=== PATIENT | female | born 1985 | race Caucasian/White ===

== ENCOUNTER 2022-11-17 21:04 | Emergency (ER) | payer MEDICAID, SELFPAY ==
[2022-11-17] VITALS (22 sets, daily range): BP systolic 100–117; BP diastolic 55–78; PULSE 81–116; RESP 20; TEMP 37.2; O2SAT 97–100; BMI 27.1
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
[2022-11-17] MEDS: BACITRACIN OINTMENT BULK TUBE 1 APPLIC TOPICAL (21:40)
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
--- NOTE | 2022-11-18 00:25 | ED.NURSE ---
Last tetanus per [facility]: 10/13/2015.
== END 2022-11-18 | disposition home or self-care (01) ==
PROVIDERS: Emergency Provider Family Medicine; PCP Family Medicine
DX: T25.221A Burn of second degree of right foot, initial encounter (principal); S80.12XA Contusion of left lower leg, initial encounter; W17.89XA Other fall from one level to another, initial encounter; X02.0XXA Exposure to flames in controlled fire in building or structure, initial encounter
CPT/HCPCS: 70450; 73590; 99284; 99291; A9270; G0390